=== PATIENT | female | born 1990 | race African-American/Black ===

== ENCOUNTER 2018-02-06 20:04 | Emergency (ER) | payer SELFPAY ==
[2018-02-06 21:59] LABS: Hemoglobin 12.4 g/dL (12.0-16.0); Mean Corpuscular Hemoglobin 26.3 pg (27.0-31.0); Mean Corpuscular Volume 77.4 fL (78.0-98.0); Mean Platelet Volume 9.6 fL (7.4-10.4); Platelet Count 202 thou/uL (130-400); RBC Distribution Width 14.2 % (11.5-14.5); White Blood Cell (WBC) Count 5.3 thou/uL (4.8-10.8)
[2018-02-06 22:13] LABS: Band 2 % (5-11); Eosinophils 1 % (0-10); Lymphocytes 19 % (21-51); MDiff Complete? YES; Monocytes 15 % (0-10); Neutrophil 63 % (42-75)
[2018-02-06 22:14] LABS: Bilirubin Small (Negative); Blood, Urine Negative (Negative); Clarity CLOUDY (Clear); Glucose, Urine (Dipstick) Negative (Negative); Leukocyte Moderate (Negative); Nitrite Negative (Negative); Protein, Urine (Dipstick) 30 mg/dL (Neg-Trace); Specific Gravity, Urine 1.033 (1.002-1.036); pH, Urine 6.5 (5.0-9.0)
[2018-02-06 22:15] LABS: Pregnancy Test - Urine (BHCG) POSITIVE (Negative); Pregu Control Background? CLEAR/WHITE (CLR/WHITE); Pregu Control Bar Appear? YES (CONTROL BAR); Specific Gravity 1.033 (1.002-1.036)
[2018-02-06 22:17] LABS: Bacteria/HPF 1+ HPF (None Seen); Pathc Cast-AUWi Flag 3.19 (0-2.49); WBC/HPF 21-50 HPF (0-3)
[2018-02-06 22:18] LABS: Hyaline Casts/LPF 0-3 HYALINE CAST LPF (0-3 Hyaline); RBC/HPF 0-3 HPF (0-3)
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
[2018-02-06] MEDS ORDERED: Acetaminophen 500 MG TAB ONE (23:39)
== END 2018-02-07 01:04 | disposition home or self-care (01) ==
LOC: ERS 20:04
DX: O9A.211 Injury, poisoning and certain other consequences of external causes complicating pregnancy, first trimester (principal); S39.011A Strain of muscle, fascia and tendon of abdomen, initial encounter; O23.41 Unspecified infection of urinary tract in pregnancy, first trimester; Z3A.09 9 weeks gestation of pregnancy; W01.0XXA Fall on same level from slipping, tripping and stumbling without subsequent striking against object, initial encounter
CPT/HCPCS: 36415; 76856; 81003; 81015; 81025; 84702; 85025; 86900; 86901; 87086; 93976; 96360

== ENCOUNTER 2018-12-03 08:14 | Emergency (ER) | payer SELFPAY ==
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
[2018-12-03] MEDS ORDERED: Fentanyl 100 MCG/2 ML VIAL ONE (09:03)
[2018-12-03] MEDS ORDERED: Ondansetron PF 4 MG/2 ML Vial ONE (09:04)
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
[2018-12-03] MEDS ORDERED: ISOVUE-370 76%-LOCM 1 ML ONE (13:41)
== END 2018-12-03 12:07 | disposition home or self-care (01) ==
LOC: ERS 08:14
DX: S16.1XXA Strain of muscle, fascia and tendon at neck level, initial encounter (principal); S20.219A Contusion of unspecified front wall of thorax, initial encounter; V49.9XXA Car occupant (driver) (passenger) injured in unspecified traffic accident, initial encounter
CPT/HCPCS: 70450; 71260; 72125; 74177; 96361; 96374; 96375; G0390; J2405; J3010; Q9966

== ENCOUNTER 2022-01-31 21:05 | Emergency (ER) | payer SELFPAY ==
[2022-01-31 22:08] LABS: Bacteria/HPF 1+ HPF (None Seen); Bilirubin Negative (Negative); Blood, Urine Negative (Negative); Clarity Clear (Clear); Glucose, Urine (Dipstick) Normal (Negative); Ketone, Urine 20 mg/dL (Negative); Leukocyte 75 Leu/uL (Negative); Nitrite 1+ (Negative); Protein, Urine (Dipstick) 30 mg/dL (Neg-Trace); RBC/HPF 0-3 HPF (0-3); Urobilinogen Normal mg/dL (Less than 2); pH, Urine 5.5 (5.0-9.0)
[2022-01-31 22:10] LABS: Pregnancy Test - Urine (BHCG) Negative (Negative); Pregu Control Background? CLEAR/WHITE (CLR/WHITE); Pregu Control Bar Appear? YES (CONTROL BAR)
[2022-01-31 22:47] LABS: SARS-CoV-2 NAA Rapid Test Not Detected (NotDetected)
== END 2022-01-31 23:10 | disposition home or self-care (01) ==
LOC: ERS 21:05
DX: N39.0 Urinary tract infection, site not specified (principal); J06.9 Acute upper respiratory infection, unspecified; Z20.822 Contact with and (suspected) exposure to COVID-19
CPT/HCPCS: 81003; 81015; 81025; 87077; 87086; 87186; 99283

== ENCOUNTER 2022-04-13 16:54 | Emergency (ER) | payer SELFPAY ==
[2022-04-13] MEDS ORDERED: Ketorolac Tromethamine 30 MG/ML VIAL ONE (19:26)
== END 2022-04-13 20:25 | disposition home or self-care (01) ==
LOC: ERS 16:54
DX: M79.642 Pain in left hand (principal); M79.641 Pain in right hand; M25.511 Pain in right shoulder
CPT/HCPCS: 96372; J1885